=== PATIENT | male | born 1930 | race African-American/Black ===

== ENCOUNTER 2018-09-20 09:50 | Emergency (ER) | payer OTHER ==
[~2018-09-20] VITALS: Ht 177.8 cm; Wt 85.0 kg
[2018-09-20] MEDS ORDERED: BACITRACIN ZINC OINT UDPKT TOP ONE (10:15)
[2018-09-20 11:20] VITALS: BP 214/97
== END 2018-09-20 11:39 | disposition home or self-care (01) ==
LOC: ER 10:05
DX: S01.01XA Laceration without foreign body of scalp, initial encounter (principal); I10 Essential (primary) hypertension; Z87.891 Personal history of nicotine dependence; W01.0XXA Fall on same level from slipping, tripping and stumbling without subsequent striking against object, initial encounter; Y93.89 Activity, other specified; Y92.89 Other specified places as the place of occurrence of the external cause; Y99.8 Other external cause status
CPT/HCPCS: 12001; 93005; 99283